=== PATIENT | female | born 1960 | race Two or more races ===

== ENCOUNTER 2016-10-09 09:53 | Inpatient (IN) | payer OTHER ==
[2016-10-09 11:34] VITALS: BMI 20.7
--- NOTE | 2016-10-09 14:33 | HP ---
CIWA Score - CIWA Score Nausea/Vomitin (N/V/D) Muscle Tremors: 4-Moderate,w/Arms Extend Anxiety: 4-Mod. Anxious/Guarded Agitation: 4-Moderately Restless Paroxysmal Sweats: 1-Minimal Palms Moist Orientation: 0-Oriented Tacttile Disturbances: 3-Moderate Itch/Numb/Burn Auditory Disturbances: 0-None Visual Disturbances: 0-None Headache: 2-Mild CIWA-Ar Total Score: 23 Admission ROS S - HPI Chief Complaint: DETOX TX FOR ALCOHOL DEPENDENCE/INTOXICATION--"I CAM'T STOP DRINKING". Allergies/Adverse Reactions: Allergies Allergy/AdvReac Type Severity Reaction Status Date / Time No Known Allergies Allergy Verified 10/09/16 11:51 History of Present Illness: 56 Y/O H/F WITH A HX OF ALCOHOL AND MARIJUANA DEPENDENCE SEEKING DETOX TX Exam Limitations: No Limitations, Intoxication - Ebola screening Have you traveled outside of the country in the last 21 days: No Have you had contact with anyone from an Ebola affected area: No Have you been sick,other than usual withdrawal symptoms: No Do you have a fever: No - Review of Systems Constitutional: Chills, Loss of Appetite, Night Sweats, Changes in sleep, Unintentional Wgt. Loss EENT: reports: Blurred Vision, Tearing, Nose Congestion, Dental Problems (UPPER DENTURES(NOT WITH PATIENT HERE)) Respiratory: reports: Cough, Productive cough Cardiac: reports: Lightheadedness GI: reports: Constipated, Diarrhea, Nausea, Vomiting, Abdominal cramping : reports: Dysuria Musculoskeletal: reports: Back Pain, Joint Pain, Muscle Pain, Muscle Weakness Integumentary: reports: Bruising, Dryness Neuro: reports: Headache, Numbness, Tingling, Tremors, Unsteady Gait, Dizziness Endocrine: reports: No Symptoms Reported Hematology: reports: Anemia Psychiatric: reports: Orientated x3, Agitated, Anxious, Depressed Other Systems: Reviewed and Negative Patient History - Patient Medical History Hx Anemia: Yes (IN THE PAST) Hx Asthma: No Hx Chronic Obstructive Pulmonary Disease (COPD): No Hx Cancer: No Hx Cardiac Disorders: No Hx Congestive Heart Failure: No Hx Hypertension: Yes (??) Hx Hypercholesterolemia: No Hx Pacemaker: No HX Cerebrovascular Accident: No Hx Seizures: No Hx Dementia: No Hx Diabetes: No Hx Gastrointestinal Disorders: No Hx Liver Disease: No Hx Genitourinary Disorders: Yes (UTI HX) Hx Sexually Transmitted Disorders: Yes (sphyllis/GC/herpes/chlymydia) Hx Renal Disease (ESRD): No Hx Thyroid Disease: No Hx Human Immunodeficiency Virus (HIV): Yes (since 1992) Hx Hepatitis C: No Hx Depression: Yes (NO MEDS) Hx Suicide Attempt: No (DENIES) Hx Bipolar Disorder: No Hx Schizophrenia: No - Patient Surgical History Past Surgical History: No Hx Neurologic Surgery: No Hx Cataract Extraction: No Hx Cardiac Surgery: No Hx Lung Surgery: No Hx Breast Surgery: No Hx Breast Biopsy: No Hx Abdominal Surgery: No Hx Appendectomy: No Hx Cholecystectomy: No Hx Genitourinary Surgery: No Hx Orthopedic Surgery: No Anesthesia Reaction: No - PPD History Previous Implant?: Yes Documented Results: Negative w/proof Implanted On Prior [facility] Admission?: Yes Date: 12/04/12 PPD to be Administered?: Yes - Reproductive History Patient is a Female of Child Bearing Age (11 -55 yrs old): Yes LMP comment: 2014 Patient : No - Smoking Cessation Smoking history: Current every day smoker Have you smoked in the past 12 months: Yes Aproximately how many cigarettes per day: 40 Cigars Per Day: 0 Hx Chewing Tobacco Use: No Initiated information on smoking cessation: Yes 'Breaking Loose' booklet given: 10/09/16 - Substance & Tx. History Hx Alcohol Use: Yes (WINE/VODKA) Hx Substance Use: Yes (MARIJUANA) Substance Use Type: Alcohol, Marijuana Hx Substance Use Treatment: Yes ([facility]) - Substances Abused Alcohol Route: Oral Frequency: Daily Amount used: wine(1gallon)/vodka(1 pint) Age of first use: 14 Date of Last Use: 10/09/16 Marijuana/Hashish Route: Smoking Frequency: Daily Amount used: $20-40 Age of first use: 12 Date of Last Use: 10/09/16 Family Disease History - Family Disease History Family Disease History: Diabetes: Sister (THYROID PROBLEM ON ANOTHER SISTER), Other: Mother (HTN;HYPERLIPIDEMIA), Sister Admission Physical Exam [facility] - Vital Signs Vital Signs: Vital Signs - 24 hr 10/09/16 11:31 Temperature 96 F L Pulse Rate 73 Respiratory 20 Rate Blood Pressure 121/72 - Physical General Appearance: Yes: Moderate Distress, Alcohol on Breath, Intoxicated, Irritable, Anxious HEENTM: Yes: EOMI, Normocephalic, WALT, Pharynx Normal Respiratory: Yes: Chest Non-Tender, Lungs Clear, Normal Breath Sounds, No Respiratory Distress Neck: Yes: Supple, Trachea in good position Breast: Yes: Breast Exam Deferred Cardiology: Yes: Regular Rhythm, Regular Rate, S1, S2 Abdominal: Yes: Normal Bowel Sounds, Non Tender, Soft Genitourinary: Yes: Other (N/C) Back: No: Within Normal Limits Musculoskeletal: Yes: full range of Motion, Gait Steady Extremities: Yes: Normal Range of Motion, Non-Tender, Other (DRY FEET.) Neurological: Yes: milieu manager II-XII NML intact, Fully Oriented, Alert Integumentary: Yes: Dry, Warm Lymphatic: Yes: Within Normal Limits - Diagnostic (1) Acquired immune deficiency syndrome (AIDS) Current Visit: Yes Status: Chronic (2) Tinea pedis Current Visit: Yes Status: Acute (3) Weight decreased Current Visit: Yes Status: Acute (4) Alcohol dependence with uncomplicated withdrawal Current Visit: Yes Status: Acute Cleared for Admission [facility] - Detox or Rehab [facility] Level of Care: Medically Managed Detox Regimen/Protocol: Librium [facility] Breath Alcohol Content Breath Alcohol Content: 0.235 Urine Pregancy Test - Result Urine Test Results: Negative- NO Line Present Urine Drug Screen - Results Drug Screen Negative: No Urine Drug Screen Results: THC-Marijuana, BZO-Benzodiazepines, TCA-Tricyclic Antidepress
[2016-10-09] MEDS ORDERED: IBUPROFEN 400 MG TABLET (FP) PO PRN (14:55)
[2016-10-09] MEDS ORDERED: MENTHOL/PHENOL 1 EACH UD MM PRN (14:55)
[2016-10-09] MEDS ORDERED: P-EPHED 60MG/TRIPROLIDI 2.5MG TABLET PO PRN (14:55)
[2016-10-09] MEDS ORDERED: guaiFENesin/D-METHORPHAN HB 10 ML UNIT-DOSE CUPS PO PRN (14:55)
[2016-10-09] MEDS ORDERED: MAGNESIUM CITRATE 300 ML BOTTLE PO PRN (14:55)
[2016-10-09] MEDS ORDERED: chlordiazePOXIDE HCL 25 MG CAPSULE PO PRN (14:55)
[2016-10-09] MEDS ORDERED: MAGNESIUM HYDROX 2400MG/30ML ORAL SUSPENSION 30 ML CUP PO PRN (14:55)
[2016-10-09] MEDS ORDERED: LOPERAMIDE HCL 2 MG CAPSULE PO PRN (14:55)
[2016-10-09] MEDS ORDERED: MAG HYDROX/AL HYDROX/SIMETH 30 ML UNIT-DOSE CUP PO PRN (14:55)
[2016-10-09] MEDS ORDERED: chlordiazePOXIDE HCL 25 MG CAPSULE PO ONE (16:30)
[2016-10-09] MEDS: NICOTINE 14 MG/24 HOURS TOPICAL PATCH TD SCH (16:43)
[2016-10-09] MEDS: RITONAVIR 100 MG TABLET PO SCH (16:44)
[2016-10-09] MEDS: EMTRICITABINE 200MG/TENOFOVIR 300MG PO SCH (16:44)
[2016-10-09] MEDS: ATAZANAVIR SO4 300 MG CAPSULE PO SCH (16:47)
[2016-10-09] MEDS: chlordiazePOXIDE HCL 25 MG CAPSULE PO SCH ×2 (17:13→22:14)
[2016-10-09 19:03] LABS: URINE APPEARANCE CLEAR; URINE BILIRUBIN NEGATIVE (NEGATIVE); URINE BLOOD NEGATIVE (NEGATIVE); URINE COLOR YELLOW; URINE GLUCOSE (UA) NEGATIVE (NEGATIVE); URINE KETONE NEGATIVE (NEGATIVE); URINE LEUK ESTERASE NEGATIVE (NEGATIVE); URINE NITRITE NEGATIVE (NEGATIVE); URINE PROTEIN NEGATIVE (NEGATIVE); URINE UROBILINOGEN NEGATIVE E.U./dl (0.2-1.0)
[2016-10-09] MEDS: ACETAMINOPHEN 325 MG TABLET (FP) PO PRN (20:19)
[2016-10-09] MEDS: diphenhydrAMINE HCL 50 MG CAPSULE PO PRN (22:14)
[2016-10-09] MEDS: THIAMINE HCL 100 MG TABLET (FP) PO SCH (22:15)
[2016-10-09] MEDS: TOLNAFTATE 1% CREAM 15 GM TUBE TP SCH (22:54)
[2016-10-10] MEDS: chlordiazePOXIDE HCL 25 MG CAPSULE PO SCH ×4 (05:58→22:21)
[2016-10-10] MEDS: ACETAMINOPHEN 325 MG TABLET (FP) PO PRN (05:59)
[2016-10-10 10:02] LABS: MCH 38.8 pg (25.7-33.7); MCHC 33.5 g/dl (32.0-36.0); MEAN CELL VOLUME 115.9 fl (80-96); PLATELET COUNT 130 K/MM3 (134-434); RDW 13.4 % (11.6-15.6); WHITE BLOOD COUNT 3.4 K/mm3 (4.0-10.0)
--- NOTE | 2016-10-10 10:15 | CONSULT ---
[facility] Psychiatric Consult - Data Date of interview: 10/10/16 Admission source: [facility] Identifying data: Readmission to [facility] for this 56 y/o female seeking detox treatment for alcohol and marijuana dependence.Patient is single, a mother of two,domiciled,unemployed and supported on [employer] funds. Substance Abuse History: - Smoking Cessation. Smoking history: Current every day smoker. Have you smoked in the past 12 months: Yes. Aproximately how many cigarettes per day: 40. Cigars Per Day: 0. Hx Chewing Tobacco Use: No. Initiated information on smoking cessation: Yes. 'Breaking Loose' booklet given : 10/09/16. - Substance & Tx. History. Hx Alcohol Use: Yes (WINE/VODKA). Hx Substance Use: Yes (MARIJUANA). Substance Use Type: Alcohol, Marijuana. Hx Substance Use Treatment: Yes ([facility]). - Substances Abused. Alcohol. Route: Oral. Frequency: Daily. Amount used: wine(1gallon)/vodka(1 pint). Age of first use: 14. Date of Last Use: 10/09/16. Marijuana/Hashish. Route: Smoking. Frequency: Daily. Amount used: $20-40. Age of first use: 12. Date of Last Use: 10/09/16. Confirmed by patient. Medical History: History of anemia,hypertension and past treatment for syphilis, chlamydia/herpes genitalis.HIV infection since 1992 (on ART medications). Psychiatric History: Patient denies history of psychiatric hospitalizations.She used to see a doctor at [facility] to address insomnia.Ms Canales denies being currently prescribed psychotropic medications.No contact with mental healthcare providers.Pattient denies history of suicide attempts. Physical/Sexual Abuse/Trauma History: Patient denies. Additional Comment: Urine Drug Screen Results: THC-Marijuana, BZO- Benzodiazepines, TCA-Tricyclic Antidepressant.Noted. Mental Status Exam - Mental Status Exam Alert and Oriented to: Time, Place, Person Cognitive Function: Grossly Intact Patient Appearance: Well Groomed (thin frame,frail) Mood: Nervous, Withdrawn Affect: Mood Congruent Patient Behavior: Fatigued, Cooperative Speech Pattern: Clear Voice Loudness: Normal Thought Process: Goal Oriented Thought Disorder: Not Present Hallucinations: Denies Suicidal Ideation: Denies Homicidal Ideation: Denies Insight/Judgement: Poor Sleep: Poorly, Difficulty falling asleep Appetite: Good Muscle strength/Tone: Normal Gait/Station: Normal Psychiatric Findings - Problem List ([place] 1, 2,3) (1) Alcohol dependence with uncomplicated withdrawal Current Visit: Yes Status: Acute (2) Marijuana dependence Current Visit: Yes Status: Acute (3) Nicotine dependence Current Visit: Yes Status: Acute (4) Substance induced mood disorder Current Visit: Yes Status: Acute (5) Tinea pedis Current Visit: Yes Status: Chronic (6) Weight decreased Current Visit: Yes Status: Chronic (7) Acquired immune deficiency syndrome (AIDS) Current Visit: Yes Status: Chronic (8) Insomnia Current Visit: Yes Status: Acute - Initial Treatment Plan Initial Treatment Plan: Psychoeducation.Detoxification.Insomnia is addressed,at patient's request,with benadryl 50 mg po hs.Side effects/benefits discussed with patient.Observation.
[2016-10-10] MEDS: PRENATAL VITAMINS W/ FOLIC ACID TABLET (FP) PO SCH (10:17)
[2016-10-10] MEDS: TOLNAFTATE 1% CREAM 15 GM TUBE TP SCH ×2 (10:17→22:21)
[2016-10-10] MEDS: ATAZANAVIR SO4 300 MG CAPSULE PO SCH (10:17)
[2016-10-10] MEDS: EMTRICITABINE 200MG/TENOFOVIR 300MG PO SCH (10:18)
[2016-10-10] MEDS: RITONAVIR 100 MG TABLET PO SCH (10:18)
[2016-10-10] MEDS: NICOTINE 14 MG/24 HOURS TOPICAL PATCH TD SCH (10:18)
[2016-10-10 11:06] LABS: ALBUMIN 3.2 g/dl (3.4-5.0); ALK PHOS 174 U/L (45-117); ANION GAP 13 (8-16); BILIRUBIN,TOTAL 0.9 mg/dL (0.2-1.0); CALCIUM 8.2 mg/dL (8.5-10.1); CO2 27 mmol/L (21-32); CREATININE 0.7 mg/dL (0.55-1.02); GLUCOSE,RANDOM 112 mg/dL (74-106); SGOT/AST 277 U/L (15-37); SGPT/ALT 105 U/L (12-78); TOT PROT 6.7 g/dl (6.4-8.2)
--- NOTE | 2016-10-10 11:41 | PN ---
[facility] CIWA - CIWA Score Nausea/Vomitin-No Nausea/No Vomiting Muscle Tremors: 4-Moderate,w/Arms Extend Anxiety: 3 Agitation: 4-Moderately Restless Paroxysmal Sweats: 3 Orientation: 0-Oriented Tacttile Disturbances: 0-None Auditory Disturbances: 0-None Visual Disturbances: 0-None Headache: 0-None Present CIWA-Ar Total Score: 14 S Progress Note (SOAP) Subjective: shakes sweats chills body aches nausea I need to speak with a dietary talent acquisition consultant Objective: 10/10/16 11:38 Vital Signs Temperature 98.6 F 10/10/16 10:51 Pulse Rate 82 10/10/16 10:51 Respiratory Rate 16 10/10/16 10:51 Blood Pressure 117/84 10/10/16 10:51 O2 Sat by Pulse Oximetry (%) Laboratory Tests 10/09/16 10/10/16 10/10/16 17:51 06:00 06:00 WBC 3.4 L D RBC 3.10 L Hgb 12.0 Hct 35.9 MCV 115.9 H MCHC 33.5 RDW 13.4 Plt Count 130 L D MPV 11.0 D Sodium 135 L Potassium 4.0 Chloride 95 L Carbon Dioxide 27 Anion Gap 13 BUN 4 L D Creatinine 0.7 D Creat Clearance w eGFR > 60 Random Glucose 112 H Calcium 8.2 L Total Bilirubin 0.9 D AST 277 H D ALT 105 H D Alkaline Phosphatase 174 H D Total Protein 6.7 Albumin 3.2 L Urine Color Yellow Urine Appearance Clear Urine pH 6.0 Urine Protein Negative Urine Glucose (UA) Negative Urine Ketones Negative Urine Blood Negative Urine Nitrite Negative Urine Bilirubin Negative Urine Urobilinogen Negative Ur Leukocyte Esterase Negative RPR Titer 10/10/16 06:00 WBC RBC Hgb Hct MCV MCHC RDW Plt Count MPV Sodium Potassium Chloride Carbon Dioxide Anion Gap BUN Creatinine Creat Clearance w eGFR Random Glucose Calcium Total Bilirubin AST ALT Alkaline Phosphatase Total Protein Albumin Urine Color Urine Appearance Urine pH Urine Protein Urine Glucose (UA) Urine Ketones Urine Blood Urine Nitrite Urine Bilirubin Urine Urobilinogen Ur Leukocyte Esterase RPR Titer Nonreactive elevated ast/alt; d/c tylenol repeat labs awake/alert ambulating no acute distress Assessment: 10/10/16 11:39 withdrawal sx Plan: continue detox increase fluids f/u repeated labs dietary talent acquisition consultant ordered tigan prn motrin 600mg prn
--- NOTE | 2016-10-10 12:01 | EKG ---
Test Reason : Blood Pressure : / mmHG Vent. Rate : 063 BPM Atrial Rate : 063 BPM P-R Int : 178 ms QRS Dur : 082 ms QT Int : 426 ms P-R-T Axes : 043 074 065 degrees QTc Int : 435 ms NORMAL SINUS RHYTHM NORMAL ECG NO PREVIOUS ECGS AVAILABLE Confirmed by AMELIA FONG, MOISES ([id number]) on 10/10/2016 12:01:25 PM Referred By: Confirmed By:MOISES CISNEROS MD
[2016-10-10] MEDS: THIAMINE HCL 100 MG TABLET (FP) PO SCH (22:21)
[2016-10-10] MEDS: diphenhydrAMINE HCL 50 MG CAPSULE PO PRN (22:23)
[2016-10-11] MEDS: diphenhydrAMINE HCL 50 MG CAPSULE PO PRN ×2 (01:54→22:34)
[2016-10-11] MEDS: ACETAMINOPHEN 325 MG TABLET (FP) PO PRN (01:55)
[2016-10-11] MEDS: chlordiazePOXIDE HCL 25 MG CAPSULE PO SCH ×2 (05:47→10:46)
[2016-10-11] MEDS: IBUPROFEN 400 MG TABLET (FP) PO PRN ×2 (05:51→22:35)
[2016-10-11 10:03] LABS: EOSINOPHIL 5.3 % (0-4.5); MCH 38.7 pg (25.7-33.7); MCHC 33.4 g/dl (32.0-36.0); MEAN CELL VOLUME 115.9 fl (80-96); MEAN PLT VOLUME 10.7 fl (7.5-11.1); NEUTROPHILS 46.5 % (42.8-82.8); PLATELET COUNT 98 K/MM3 (134-434); RDW 13.1 % (11.6-15.6); WHITE BLOOD COUNT 3.3 K/mm3 (4.0-10.0)
[2016-10-11 10:19] LABS: ALBUMIN 2.4 g/dl (3.4-5.0); ALK PHOS 145 U/L (45-117); ANION GAP 8 (8-16); BILIRUBIN,TOTAL 1.6 mg/dL (0.2-1.0); CALCIUM 8.4 mg/dL (8.5-10.1); CO2 29 mmol/L (21-32); CREATININE 0.7 mg/dL (0.55-1.02); GLUCOSE,RANDOM 75 mg/dL (74-106); SGOT/AST 159 U/L (15-37); SGPT/ALT 77 U/L (12-78); TOT PROT 5.1 g/dl (6.4-8.2)
[2016-10-11] MEDS: PRENATAL VITAMINS W/ FOLIC ACID TABLET (FP) PO SCH (10:46)
[2016-10-11] MEDS: TOLNAFTATE 1% CREAM 15 GM TUBE TP SCH ×2 (10:46→22:35)
[2016-10-11] MEDS: NICOTINE 14 MG/24 HOURS TOPICAL PATCH TD SCH (10:47)
--- NOTE | 2016-10-11 10:48 | PN ---
[facility] CIWA - CIWA Score Nausea/Vomitin-No Nausea/No Vomiting Muscle Tremors: 3 Anxiety: 3 Agitation: 3 Paroxysmal Sweats: 3 Orientation: 0-Oriented Tacttile Disturbances: 0-None Auditory Disturbances: 0-None Visual Disturbances: 0-None Headache: 0-None Present CIWA-Ar Total Score: 12 S Progress Note (SOAP) Subjective: shakes sweats agitation feeling a little better Objective: 10/11/16 10:47 Vital Signs Temperature 97.7 F 10/11/16 10:11 Pulse Rate 73 10/11/16 10:11 Respiratory Rate 18 10/11/16 10:11 Blood Pressure 134/86 10/11/16 10:11 O2 Sat by Pulse Oximetry (%) Laboratory Tests 10/09/16 10/10/16 10/10/16 17:51 06:00 06:00 WBC 3.4 L D RBC 3.10 L Hgb 12.0 Hct 35.9 MCV 115.9 H MCHC 33.5 RDW 13.4 Plt Count 130 L D MPV 11.0 D Neutrophils % Lymphocytes % Monocytes % Eosinophils % Basophils % Sodium 135 L Potassium 4.0 Chloride 95 L Carbon Dioxide 27 Anion Gap 13 BUN 4 L D Creatinine 0.7 D Creat Clearance w eGFR > 60 Random Glucose 112 H Calcium 8.2 L Total Bilirubin 0.9 D AST 277 H D ALT 105 H D Alkaline Phosphatase 174 H D Total Protein 6.7 Albumin 3.2 L Urine Color Yellow Urine Appearance Clear Urine pH 6.0 Ur Specific [place] <= 1.005 Urine Protein Negative Urine Glucose (UA) Negative Urine Ketones Negative Urine Blood Negative Urine Nitrite Negative Urine Bilirubin Negative Urine Urobilinogen Negative Ur Leukocyte Esterase Negative RPR Titer 10/10/16 10/11/16 10/11/16 06:00 07:00 07:00 WBC 3.3 L RBC 2.79 L Hgb 10.8 Hct 32.3 L MCV 115.9 H MCHC 33.4 RDW 13.1 Plt Count 98 L D MPV 10.7 Neutrophils % 46.5 Lymphocytes % 38.9 Monocytes % 6.3 Eosinophils % 5.3 H Basophils % 3.0 H Sodium 138 Potassium 3.9 Chloride 101 Carbon Dioxide 29 Anion Gap 8 BUN 7 D Creatinine 0.7 Creat Clearance w eGFR > 60 Random Glucose 75 D Calcium 8.4 L Total Bilirubin 1.6 H D AST 159 H D ALT 77 D Alkaline Phosphatase 145 H Total Protein 5.1 L D Albumin 2.4 L D Urine Color Urine Appearance Urine pH Ur Specific [place] Urine Protein Urine Glucose (UA) Urine Ketones Urine Blood Urine Nitrite Urine Bilirubin Urine Urobilinogen Ur Leukocyte Esterase RPR Titer Nonreactive repeated labs improving awake/alert ambulating no acute distress Assessment: 10/11/16 10:48 withdrawal sx Plan: continue detox increase fluids
[2016-10-11] MEDS: EMTRICITABINE 200MG/TENOFOVIR 300MG PO SCH (17:35)
[2016-10-11] MEDS: chlordiazePOXIDE 5 MG CAPSULE PO SCH ×2 (17:35→22:34)
[2016-10-11] MEDS: ATAZANAVIR SO4 300 MG CAPSULE PO SCH (17:35)
[2016-10-11] MEDS: RITONAVIR 100 MG TABLET PO SCH (17:36)
[2016-10-11] MEDS: THIAMINE HCL 100 MG TABLET (FP) PO SCH (22:36)
[2016-10-12] MEDS: diphenhydrAMINE HCL 50 MG CAPSULE PO PRN ×2 (03:28→22:16)
[2016-10-12] MEDS: chlordiazePOXIDE 5 MG CAPSULE PO SCH ×2 (05:28→10:32)
[2016-10-12] MEDS: IBUPROFEN 400 MG TABLET (FP) PO PRN ×2 (05:31→22:18)
[2016-10-12] MEDS: NICOTINE POLACRILEX 2 MG GUM BC PRN ×2 (09:32→19:14)
[2016-10-12] MEDS: PRENATAL VITAMINS W/ FOLIC ACID TABLET (FP) PO SCH (10:31)
[2016-10-12] MEDS: NICOTINE 14 MG/24 HOURS TOPICAL PATCH TD SCH (10:32)
[2016-10-12] MEDS: TOLNAFTATE 1% CREAM 15 GM TUBE TP SCH ×2 (10:32→22:16)
--- NOTE | 2016-10-12 11:15 | PN ---
[facility] Progress Note (SOAP) Subjective: irritable little sweats no shakes Objective: 10/12/16 11:14 Vital Signs Temperature 96.8 F L 10/12/16 09:51 Pulse Rate 83 10/12/16 09:51 Respiratory Rate 16 10/12/16 09:51 Blood Pressure 122/65 10/12/16 09:51 O2 Sat by Pulse Oximetry (%) awake/alert ambulating no acute distress Assessment: 10/12/16 11:14 withdrawal sx Plan: continue detox increase fluids d/c in am
[2016-10-12] MEDS: ATAZANAVIR SO4 300 MG CAPSULE PO SCH (17:14)
[2016-10-12] MEDS: RITONAVIR 100 MG TABLET PO SCH (17:14)
[2016-10-12] MEDS: chlordiazePOXIDE HCL 10 MG CAPSULE PO SCH ×2 (17:15→22:16)
[2016-10-12] MEDS: EMTRICITABINE 200MG/TENOFOVIR 300MG PO SCH (17:15)
[2016-10-12] MEDS: THIAMINE HCL 100 MG TABLET (FP) PO SCH (22:16)
[2016-10-13] MEDS: chlordiazePOXIDE HCL 10 MG CAPSULE PO SCH (05:50)
[2016-10-13] MEDS: IBUPROFEN 400 MG TABLET (FP) PO PRN (05:54)
[2016-10-13 06:44] VITALS: BP 126/70; PULSE 55; TEMP 97.7
--- NOTE | 2016-10-13 08:44 | DS ---
[facility] Detox Discharge Summary Admission Date: 10/09/16 Discharge Date: 10/13/16 - History Present History: Alcohol Dependence, Cannabis Dependence - Physical Exam Results Vital Signs: Vital Signs Temperature 97.7 F 10/13/16 06:00 Pulse Rate 55 L 10/13/16 06:00 Respiratory Rate 16 10/13/16 06:00 Blood Pressure 126/70 10/13/16 06:00 O2 Sat by Pulse Oximetry (%) - Treatment Hospital Course: Detox Protocol Followed, Detoxed Safely, Responded well, Discharged Condition Good, Rehab Referral Accepted - Medication Discharge Medications: Ambulatory Orders Atazanavir [Reyataz] 300 mg PO DAILY #12/04/12 Emtricitabine/Tenofovir [Truvada Tablet] 1 each PO DAILY #12/04/12 Ritonavir [Norvir] 100 mg PO DAILY #12/04/12 - Diagnosis (1) Alcohol dependence with uncomplicated withdrawal Current Visit: Yes Status: Chronic (2) Insomnia Current Visit: Yes Status: Chronic (3) Marijuana dependence Current Visit: Yes Status: Chronic (4) Nicotine dependence Current Visit: Yes Status: Chronic Qualifiers: Nicotine product type: cigarettes Substance use status: uncomplicated Qualified Code(s): F17.210 - Nicotine dependence, cigarettes, uncomplicated (5) Substance induced mood disorder Current Visit: Yes Status: Acute (6) Acquired immune deficiency syndrome (AIDS) Current Visit: Yes Status: Chronic (7) Tinea pedis Current Visit: Yes Status: Chronic (8) Weight decreased Current Visit: Yes Status: Chronic (9) Acute bronchitis Current Visit: No Status: Active (10) Contact dermatitis Current Visit: No Status: Active (11) depression Current Visit: No Status: Active - AMA Did Patient Leave Against Medical Advice: No
== END 2016-10-13 09:26 | disposition home or self-care (01) | DRG 775 ==
LOC: YASAS 09:53 → Y6N 14:15
PROVIDERS: ADMIT Internal Medicine; ATTEND Internal Medicine
PROC: HZ2ZZZZ Detoxification Services for Substance Abuse Treatment (ICD-10-PCS; principal; 2016-10-09)
DX: F10.230 Alcohol dependence with withdrawal, uncomplicated (principal); F12.20 Cannabis dependence, uncomplicated; F17.210 Nicotine dependence, cigarettes, uncomplicated; F19.24 Other psychoactive substance dependence with psychoactive substance-induced mood disorder; F32.9 Major depressive disorder, single episode, unspecified; G47.00 Insomnia, unspecified; B20 Human immunodeficiency virus [HIV] disease; B35.3 Tinea pedis; J20.9 Acute bronchitis, unspecified; L25.9 Unspecified contact dermatitis, unspecified cause; R74.0 Nonspecific elevation of levels of transaminase and lactic acid dehydrogenase [LDH]; Z87.898 Personal history of other specified conditions; Z87.42 Personal history of other diseases of the female genital tract; Z86.2 Personal history of diseases of the blood and blood-forming organs and certain disorders involving the immune mechanism
CPT/HCPCS: 36415; 80053; 81003; 85025; 85027; 85610; 86593; 93005; 93010